=== PATIENT | female | born 2000 | race Caucasian/White ===

== ENCOUNTER 2018-06-14 12:42 | Inpatient (IN) | payer MEDICAID ==
[~2018-06-14] VITALS: Ht 154.9 cm; Wt 61.3 kg
[2018-06-14 12:58] VITALS: Ht 154.9 cm; Wt 61.3 kg
[2018-06-14 12:59] VITALS: BP 114/79; PULSE 94; RESP 20
[2018-06-14] MEDS ORDERED: FER325 PO (13:04)
[2018-06-14] MEDS ORDERED: PREN-93 PO (13:04)
--- NOTE | 2018-06-14 13:13 | TRIAGE ---
OB Triage Datetime Report Generated by CPN: 06/14/2018 13:13 Datetime: 06/14/2018 13:10 Stage of : OB Triage Assessment Type: Triage Maternal Assessment Level of Consciousness: Fully Conscious DTR's/Clonus: DTRs 2+; No Clonus Blurred Vision: No Respiratory Effort: Unlabored; Regular Rhythm; Equal Expansion Breath Sounds, Left: Clear and Equal Breath Sounds, Right: Clear and Equal Nausea/Vomiting: Denies RUQ Epigastric Pain: Denies Lower Extremities Edema: None Upper Extremities Edema: None Facial Edema: None Temperature Route: Axillary Fall Risk Assessment History of Falling: (0) No Secondary Diagnosis: (0) No Ambulatory Aid: (0) Bedrest/Nurse Assist IV Therapy: (0) No Gait: (0) Normal/Bedrest/Immobile Mental Status: (0) Oriented to Own Ability Fall Score: 0 Fall Risk Score Definition: No Risk: No action required Datetime: 06/14/2018 13:09 EGA: 39.0 Datetime: 06/14/2018 12:35 Time of Arrival: 06/14/2018 12:35 Arrived By: Ambulatory Arrived From: Office Chief Complaint: Headache Movement: Present Contractions: Denies/Absent Rupture of Membranes: Denies Vaginal Bleeding: None Vaginal Discharge: Denies Recent Sexual Intercouse: Denies Patient Complaints: None Time Provider Notified: 06/14/2018 13:07 Provider Notified: Ameya Initial Plan: LAXMI IGLESIAS labs
[2018-06-14] MEDS ORDERED: CARBOPROST 250 MCG INJ IM PRN (13:30)
[2018-06-14] MEDS ORDERED: MISOPROSTOL 200 MCG TAB PR PRN (13:30)
[2018-06-14] MEDS ORDERED: OXYTOCIN 30 UNITS/LR 500 ML IV SCH ×3 (13:30)
[2018-06-14] MEDS ORDERED: LIDOCAINE 1% (MPF) 30 ML INJ INJ PRN (13:30)
[2018-06-14] MEDS ORDERED: OXYTOCIN 30 UNITS/LR 500 ML IV PRN (13:30)
[2018-06-14] MEDS ORDERED: METHYLERGONOVINE 0.2 MG INJ IM PRN (13:30)
[2018-06-14] MEDS ORDERED: IBUPROFEN 600 MG TAB PO PRN (13:30)
--- NOTE | 2018-06-14 14:26 | HP ---
Date/Time of Note Date/Time of Note DATE: 06/14/18 TIME: 14:25 OB - History Hx of Present Free Text/Dictation term preg Care: Good Care Ultrasounds: Normal mid trimester US Obstetrical Complications: None Medical Complications: None Past Family/Social History * Past Medical, Surgical, Family and Obstetric Histories reviewed from chart. OB Admission Exam Vital Signs Vital Signs Vital Signs Date Temp Pulse Resp B/P (MAP) Pulse Ox O2 O2 Flow FiO2 Time Delivery Rate 06/14/18 98.2 94 20 114/79 Room Air 12:59 (91) Physical Exam HEENT: WNL Heart: Rhythm Normal Lungs: Clear, Equal Abdomen: WNL Extremities: Normal Reflexes: Normal Cervical Dilatation: 3cm Effacement: 50% Station: -2 Membranes: Intact Heart Rate: 120's Accelerations: Accelerations Present Decelerations: No Decelerations Varibility: Moderate Contractions on Admission: 6-10 Minutes Apart Intensity: Moderate OB Assessment/Plan Reason for admission: active labor Plan: Expectant Management Induction Method: per Pitocin Protocol SAKINA ABDUL MD Jun 14, 2018 14:26
[2018-06-14] MEDS ORDERED: AMPICILLIN 2 GM/NS (PMX) 100 ML IV ONE (15:30)
[2018-06-14] MEDS ORDERED: ACETAMINOPHEN 325 MG TAB PO PRN (15:30)
[2018-06-14] MEDS ORDERED: AMPICILLIN 2 GM/NS (PMX) 100 ML ONE (15:31)
[2018-06-14] MEDS: LACTATED RINGER'S 1,000 ML IV SCH ×2 (15:36→20:37)
[2018-06-14] MEDS ORDERED: AMPICILLIN 1 GM/NS (PMX) 50 ML IV SCH (19:30)
[2018-06-15] MEDS: BUTORPHANOL 2 MG INJ IV PRN ×2 (03:38→06:58)
[2018-06-15] MEDS: LACTATED RINGER'S 1,000 ML IV SCH (03:41)
--- NOTE | 2018-06-15 07:24 | PREAC ---
Date/Time of Note Date/Time of Note DATE: 06/15/18 TIME: 07:23 Anesthesia Eval and Record Evaluation Time Pre-Procedure Interview DATE: 06/15/18 TIME: 07:23 Age 17 Sex female NPO: Other (na) Preoperative diagnosis labor pain Planned procedure epidural Past Medical History Past Medical History: None Surgery & Anesthesia Issues No known issue Meds Anticoagulation: No Beta Naldo within 24 hr: No Reason Beta Naldo not given: Pt. not on B-Naldo Reported Medications Ferrous Sulfate* (Ferrous Sulfate*) 325 Mg Tabec, 325 MG PO DAILY, TAB 06/14/18 Vit No.124/Iron/FA ( Vitamin Tablet) 1 Each Tablet, 1 EACH PO, TAB 06/14/18 Current Medications Lactated Ringer's 1,000 ml @ 125 mls/hr Q8H IV Last administered on 06/15/18at 03:41; Admin Dose 125 MLS/HR; Start 06/14/18 at 13:16 Butorphanol Tartrate (Stadol) 2 mg Q2H PRN IV PAIN Last administered on 06/15/18at 06:58; Admin Dose 2 MG; Start 06/14/18 at 13:30 Lidocaine (Xylocaine 1% (Mpf)) 30 ml ONCE PRN INJ EPISIOTOMY; Start 06/14/18 at 13:30 Oxytocin/Lactated Ringer's 500 ml @ 500 mls/hr ONCE POST IV ; Start 06/14/18 at 13:30 Oxytocin/Lactated Ringer's 500 ml @ 125 mls/hr POST IV ; Start 06/14/18 at 13:30 Ibuprofen (Motrin) 600 mg ONCE PRN PO PAIN LEVEL 1-5; Start 06/14/18 at 13:30 Oxytocin/Lactated Ringer's 500 ml @ 0 mls/hr ONCE PRN IV VAGINAL BLEEDING; Start 06/14/18 at 13:30 Methylergonovine Maleate (Methergine) 0.2 mg ONCE PRN IM VAGINAL BLEEDING; Start 06/14/18 at 13:30 Carboprost Tromethamine (Hemabate) 250 mcg ONCE PRN IM VAGINAL BLEEDING; Start 06/14/18 at 13:30 Misoprostol (Cytotec) 1,000 mcg ONCE PRN LA VAGINAL BLEEDING; Start 06/14/18 at 13:30 Oxytocin/Lactated Ringer's 500 ml @ 0 mls/hr FOR AUGMENTATION IV Last administered on 06/14/18at 15:37; Admin Dose 1 MLS/HR; Start 06/14/18 at 13:30 Acetaminophen (Tylenol Tab) 650 mg Q6H PRN PO MILD PAIN(1-3)OR ELEVATED TEMP Last administered on 06/14/18at 16:11; Admin Dose 650 MG; Start 06/14/18 at 15:30 Meds reviewed: Yes Allergies Coded Allergies: No Known Allergy (Unverified , 06/14/18) Allergies Reviewed: Yes Labs/Studies Labs Reviewed: Reviewed by anesthesiologist Result Diagram: 06/14/18 1400 06/14/18 1400 Laboratory Tests 06/14/18 14:00 Blood Bank Test 06/14/18 14:00 Antibody Screen NEGATIVE Blood Type O POSITIVE Rh Immune Globulin Candidate NO test: N/A Pre-procedure Exam Last vitals Vital Signs Date Temp Pulse Resp B/P (MAP) Pulse Ox O2 O2 Flow FiO2 Time Delivery Rate 06/14/18 98.2 94 20 114/79 Room Air 12:59 (91) Airway: Adequate mouth opening, Adequate thyromental dist Mallampati: Mallampati III Teeth: Normal Lung: Normal Heart: Normal ASA Physical Status ASA physical status: 2 Emergency: None Pre-operative Attestations Prior to commencing anesthesia and surgery, the patient was re-evaluated, there was verification of: *The patient's identity *The results of appropriate recent lab work and preoperative vital signs *The above evaluation not changing prior to induction *Anesthetic plan, risk benefits, alternative and complications discussed with patient/family; questions answered; patient/family understands, accepts and wishes to proceed. KENN GUERRA DO Jun 15, 2018 07:24
[2018-06-15] MEDS ORDERED: NALOXONE (0.4 MG/ML) INJ IV PRN (07:30)
[2018-06-15] MEDS ORDERED: FENTAnyl 2MCG/ML-ROPIV 0.2% 100 ML BAG EPI SCH (07:30)
--- NOTE | 2018-06-15 07:47 | PAC ---
Date/Time of Note Date/Time of Note DATE: 06/15/18 TIME: 07:46 Post-Anesthesia Notes Post-Anesthesia Note Last documented vital signs Vital Signs Date Temp Pulse Resp B/P (MAP) Pulse Ox O2 O2 Flow FiO2 Time Delivery Rate 06/15/18 98.0 94 20 120/50 98 Room Air Activity: WNL Respiratory function: WNL Cardiovascular function: WNL Mental status: Baseline Pain reasonably controlled: Yes Hydration appropriate: Yes Nausea/Vomiting absent: Yes KENN GUERRA DO Jun 15, 2018 07:47
--- NOTE | 2018-06-15 11:40 | LDN ---
Date/Time of Note Date/Time of Note DATE: 06/15/18 TIME: 11:39 Delivery Summary term Placenta Delivered: Spontaneously Meconium: none Episiotomy: No Perineal laceration: 1 Anesthesia type: Epidural Estimated blood loss: 300 Sponge & Needle done & correct: Yes All needle counts correct: Yes Any foreign bodies felt in the: No SAKINA ABDUL MD Jun 15, 2018 11:40
--- NOTE | 2018-06-15 12:45 | QN ---
Documentation Comment The patient has increasing pain with the uterine ctxs. She SROM with clear fluid. Due to increasing pain and pt. request will do the c/s before 8 hours from the time she ate. Informed the anesthesia. SAKINA ABDUL MD Jun 15, 2018 12:45
[2018-06-15 13:10] VITALS: BP 122/79; PULSE 105; RESP 18
[2018-06-15] MEDS: LACTATED RINGER'S 1,000 ML IV* SCH ×2 (13:31→21:26)
[2018-06-15] MEDS ORDERED: OXYTOCIN 30 UNITS/LR 500 ML IV SCH (13:31)
[2018-06-15] MEDS ORDERED: DIPHENHYDRAMINE 25 MG CAP PO PRN (14:00)
[2018-06-15] MEDS ORDERED: LANOLIN HPA 1 PKT TOP PRN (14:00)
[2018-06-15] MEDS ORDERED: METHYLERGONOVINE 0.2 MG INJ IM PRN (14:00)
[2018-06-15] MEDS ORDERED: MAGNESIUM HYDROXIDE 30ML CUP PO PRN (14:00)
[2018-06-15] MEDS ORDERED: BENZOCAINE 20% 56 ML SPRAY TOP PRN (14:00)
[2018-06-15] MEDS ORDERED: OXYTOCIN 30 UNITS/LR 500 ML IV PRN (14:00)
[2018-06-15] MEDS ORDERED: SENNA/DOCUSATE NA (8.6MG/50MG) TAB PO PRN (14:00)
[2018-06-15] MEDS ORDERED: WITCH HAZEL/GLYCERIN PAD PR PRN (14:00)
[2018-06-15] MEDS ORDERED: CARBOPROST 250 MCG INJ IM PRN (14:00)
[2018-06-15] MEDS ORDERED: MISOPROSTOL 200 MCG TAB PR PRN (14:00)
[2018-06-15] MEDS ORDERED: HYDROCODONE/APAP (5/325) TAB PO PRN (14:00)
[2018-06-15] MEDS ORDERED: ZOLPIDEM 5 MG TAB PO PRN (14:00)
[2018-06-15 15:30] VITALS: BP 117/76; PULSE 100; PULSE 106; RESP 18
[2018-06-15] MEDS: IBUPROFEN 800 MG TAB PO SCH ×2 (17:29→23:41)
[2018-06-15 19:45] VITALS: BP 109/73; PULSE 105; RESP 18
[2018-06-16 00:31] VITALS: BP 98/75; PULSE 98; RESP 18
[2018-06-16 04:14] VITALS: BP 108/72; PULSE 94; RESP 18
[2018-06-16] MEDS: IBUPROFEN 800 MG TAB PO SCH ×3 (05:38→17:14)
[2018-06-16 08:30] VITALS: BP 104/77; PULSE 77; RESP 18
[2018-06-16] MEDS: ACETAMINOPHEN 325 MG TAB PO PRN ×2 (09:06→22:07)
[2018-06-16 15:06] VITALS: BP 106/78; PULSE 91; RESP 18
--- NOTE | 2018-06-16 16:06 | PN ---
Date/Time of Note Date/Time of Note DATE: 06/16/18 TIME: 16:04 OB Subjective Subjective Subjective PPD# 1 Patient is doing well. She denies nausea, vomiting, shortness of breath, chest pain, headache. She has been ambulating without difficulty, tolerating regular diet. Pain is well controlled on current medications OB Objective Objective Objective VS - Last 72 Hours, by Label Date Temp Pulse Resp B/P (MAP) Pulse Ox O2 O2 Flow FiO2 Time Delivery Rate 06/16/18 98.6 91 18 106/78 Room Air 15:06 (87) 06/16/18 98.1 77 18 104/77 Room Air 08:30 (86) 06/16/18 98.0 94 18 108/72 Room Air 04:14 (84) 06/16/18 97.8 98 18 98/75 (83) Room Air 00:31 06/15/18 98.5 105 18 109/73 Room Air 19:45 (85) 06/15/18 98.9 100 18 117/76 Room Air 15:30 (90) 06/15/18 99.0 105 18 122/79 Room Air 13:10 (93) 06/14/18 98.2 94 20 114/79 Room Air 12:59 (91) General: AAO X 3, comfortable, NAD, appropriate mood and affect. ABD: +BS. Soft, non-tender. Uterus 2 cm below umbilicus Flank: No CVA tenderness (B/L) LE: Mild edema. No clubbing, cyanosis, thigh or calf tenderness (B/L). Homans 'sign is negative Laboratory Tests Test 06/16/18 06:24 06/16/18 06:51 White Blood Count 10.7 10^3/ul Red Blood Count 3.48 10^6/ul Hemoglobin 8.4 g/dl Hematocrit 26.8 % Mean Corpuscular Volume 77.0 fl Mean Corpuscular Hemoglobin 24.1 pg Mean Corpuscular Hemoglobin Concent 31.3 g/dl Red Cell Distribution Width 17.6 % Platelet Count 175 10^3/UL Mean Platelet Volume 10.2 fl Immature Granulocytes % 0.600 % Neutrophils % 60.4 % Lymphocytes % 29.9 % Monocytes % 8.2 % Eosinophils % 0.8 % Basophils % 0.1 % Nucleated Red Blood Cells % 0.0 /100WBC Immature Granulocytes # 0.060 10^3/ul Neutrophils # 6.4 10^3/ul Lymphocytes # 3.2 10^3/ul Monocytes # 0.9 10^3/ul Eosinophils # 0.1 10^3/ul Basophils # 0.0 10^3/ul Nucleated Red Blood Cells # 0.0 10^3/ul Lab Scanned Report [facility] [id number] OB Assessment/Plan Other plan: 17 years old [id number] s/p normal vaginal delivery. PPD#1 - AF, VSS - Baby is doing well, at bed side. She is bonding well - Contraception methods with R/B/A/FR discussed - Continue care - Discharge home tomorrow - Rx and instruction given - Follow up in 2 and 6 weeks at clinic 2) Anemia: Go to be in 8.5, recommend increase ferrous sulfate 325 mg 3 times daily and continue vitamin. SIA STOLL Jun 16, 2018 16:06
[2018-06-16 20:50] VITALS: BP 108/69; PULSE 101; RESP 19
[2018-06-17] MEDS: IBUPROFEN 800 MG TAB PO SCH ×3 (00:01→11:17)
[2018-06-17 04:00] VITALS: BP 109/78; PULSE 89; RESP 19
[2018-06-17 08:36] VITALS: BP 103/57; PULSE 91; RESP 16
[2018-06-17] MEDS ORDERED: VARICELLA VACCINE LIVE/PF 1,350 UNIT/0.5 ML ML SC* ONE (09:00)
[2018-06-17] MEDS ORDERED: MEASLES,MUMPS,RUBELLA VACCINE INJ SC* ONE (09:00)
[2018-06-17] MEDS ORDERED: DIPHTH/TET/ACEL PERTUSS (ADULT) 0.5 ML VIAL IM* ONE (09:00)
--- NOTE | 2018-06-17 13:08 | DS ---
Date/Time of Note Date/Time of Note DATE: 06/17/18 TIME: 13:07 Discharge Summary Admission/Discharge Info Admit Date/Time Jun 14, 2018 at 13:07 Discharge Date/Time Discharge Diagnosis term Patient Condition: Stable Hospital Course unremarkable Home Meds Reported Medications Ferrous Sulfate* (Ferrous Sulfate*) 325 Mg Tabec, 325 MG PO DAILY, TAB 06/14/18 Vit No.124/Iron/FA ( Vitamin Tablet) 1 Each Tablet, 1 EACH PO, TAB 06/14/18 Primary Care Provider Care Physician No Primary SAKINA ABDUL MD Jun 17, 2018 13:08
== END 2018-06-17 17:14 | disposition home or self-care (01) | DRG 807 ==
LOC: OBT 12:42 → L-D 12:50 → OBT 13:07 → L-D 13:07 → PP1 06-15 13:10
PROVIDERS: ADMIT Obstetrics & Gynecology; ATTEND Obstetrics & Gynecology
PROC: 10E0XZZ Delivery of Products of Conception, External Approach (ICD-10-PCS; principal; 2018-06-15)
DX: O80 Encounter for full-term uncomplicated delivery (principal); Z37.0 Single live birth; Z3A.39 39 weeks gestation of pregnancy
CPT/HCPCS: 62319; 76815; 76818; 80053; 84560; 85025; 85610; 85730; 86592; 86850; 86900; 86901; 87340; 90716; G0463; J0290; J0595; J2590; J3010; J7120